=== PATIENT | female | born 1985 | race Caucasian/White ===

== ENCOUNTER 2019-01-18 09:44 | Observation (INO) | payer SELFPAY ==
[2019-01-18] MEDS ORDERED: OXYCODONE-ACETAMINOPHEN 5-325 MG TABLET PO ONE ×2 (09:55→14:18)
[2019-01-18] MEDS ORDERED: ONDANSETRON 4 MG TAB.RAPDIS PO ONE ×2 (09:55→14:11)
[2019-01-18] MEDS ORDERED: PROMETHAZINE HCL 25 MG TABLET PO ONE (09:55)
--- NOTE | 2019-01-18 09:56 | ER Document Report ---
ED Medical Screen (RME) - General Chief Complaint: Skin Problem Stated Complaint: SHORTNESS OF BREATH Time Seen by Provider: 01/18/19 09:53 Notes: Patient's complaining of a "knot" in her right axilla which has been present for about 3 days. Getting worse. Has never had this before. Area has not drained. No fever. No significant past medical history. On no prescription medications. Erythema on the right axilla. Patient appears to be in considerable pain. - Related Data Allergies/Adverse Reactions: No Known Allergies Allergy (Unverified 01/18/19 09:46) Past Medical History - Social History Chew tobacco use (# tins/day): No Frequency of alcohol use: None Drug Abuse: None Renal/ Medical History: Denies: Hx Peritoneal Dialysis Renal/ Medical History: Denies: Hx Peritoneal Dialysis Physical Exam - Vital signs Vitals: Temp Pulse Resp BP Pulse Ox 97.9 F 99 16 125/82 100 01/18/19 09:48 01/18/19 09:48 01/18/19 09:48 01/18/19 09:48 01/18/19 09:48 Course - Vital Signs Vital signs: Temp Pulse Resp BP Pulse Ox 97.9 F 99 16 125/82 100 01/18/19 09:48 01/18/19 09:48 01/18/19 09:48 01/18/19 09:48 01/18/19 09:48
--- NOTE | 2019-01-18 14:06 | ER Document Report ---
ED General - General Chief Complaint: Skin Problem Stated Complaint: SHORTNESS OF BREATH Time Seen by Provider: 01/18/19 09:53 Notes: 33 female presents for abscess in right axilla that started 2 days ago as a pimple. She states the pain is excruciating, it hurts to breathe, she is nauseated, she has a fever, and she "just wants help ". She complains of chills, denies headache, denies dizziness or lightheadedness, denies vomiting or abdominal pain, denies urinary issues. No other complaints. - Related Data Allergies/Adverse Reactions: No Known Allergies Allergy (Unverified 01/18/19 09:46) Past Medical History - Social History Smoking Status: Current Every Day Smoker Chew tobacco use (# tins/day): No Frequency of alcohol use: None Drug Abuse: None Family History: Reviewed & Not Pertinent Patient has suicidal ideation: No Patient has homicidal ideation: No Renal/ Medical History: Denies: Hx Peritoneal Dialysis Review of Systems - Review of Systems Constitutional: See HPI EENT: No symptoms reported Cardiovascular: See HPI Respiratory: See HPI Gastrointestinal: See HPI Genitourinary: No symptoms reported Female Genitourinary: No symptoms reported Musculoskeletal: No symptoms reported Skin: See HPI Hematologic/Lymphatic: No symptoms reported Neurological/Psychological: No symptoms reported Physical Exam - Vital signs Vitals: Temp Pulse Resp BP Pulse Ox 97.9 F 99 16 125/82 100 01/18/19 09:48 01/18/19 09:48 01/18/19 09:48 01/18/19 09:48 01/18/19 09:48 - Notes Notes: PHYSICAL EXAMINATION: Reviewed vital signs and charting by RN GENERAL: Alert, interacts well. In acute distress. HEAD: Normocephalic, atraumatic. EYES: Pupils equal, round. Extraocular movements intact. ENT: Oral mucosa moist. NECK: Full range of motion. Trachea midline. EXTREMITIES: Moves all 4 extremities spontaneously. No edema, No cyanosis. BACK: no cervical, thoracic, lumbar midline tenderness. No saddle anesthesia, normal distal neurovascular exam. NEUROLOGICAL: Alert and oriented x3. Normal speech. PSYCH: Normal affect, normal mood. SKIN: Warm, dry, normal turgor. No rashes or lesions noted. Area of induration right axilla approximately 10 m x 4 cm, could not find any fluctuant area. There is an area of erythema. Course - Re-evaluation Re-evalutation: 01/18/19 14:04 33 female who appears to be in distress. Bedside ultrasound performed and no visible fluid pocket seen. Presentation most consistent with an abscess. I will provide coverage with Keflex 500 mg 4 times per day for 7 days and Bactrim double strength twice a day for 7 days. Patient's vital signs are stable. Took patient's temperature read 101.8. Patient in acute distress. I ordered some basic labs and provided pain control. Will reassess. 01/18/19 15:56 Patient with a leukocytosis of 15.8. Repeat temperature 102.0 orally. Order lactate, IV fluids, blood cultures. 01/18/[address] Knight, surgical list, and explained to him that patient had an area of induration without a drainable pocket. He stated that if that is the case it would be best to call the hospitalist whom I called, Dr. Maldonado, who accepted the patient for full medical floor admission - Vital Signs Vital signs: Temp Pulse Resp BP Pulse Ox 103.1 F H 99 16 125/82 100 01/18/19 15:53 01/18/19 09:48 01/18/19 09:48 01/18/19 09:48 01/18/19 09:48 - Laboratory Result Diagrams: 01/18/19 15:12 01/18/19 15:12 Laboratory results interpreted by me: 01/18/19 01/18/19 15:12 15:12 WBC 15.8 H Seg Neutrophils % 85.0 H Lymphocytes % 7.9 L Absolute Neutrophils 13.4 H AST 50 H Discharge - Discharge Clinical Impression: Abscess Condition: Good Disposition: ADMITTED INPATIENT Admitting Provider: Hospitalist Unit Admitted: Medical Floor Prescriptions: Cephalexin Monohydrate [Keflex 500 mg Capsule] 500 mg PO QID 10 Days #40 capsule Sulfamethoxazole/Trimethoprim [Bactrim Ds Tablet] 1 each PO BID 10 Days #20 tablet
[2019-01-18] MEDS ORDERED: CEPHALEXIN 500 MG CAPSULE PO ONE (14:08)
[2019-01-18] MEDS ORDERED: SULFAMETHOXAZOLE/TRIMETHOPRIM 800-160 MG TABLET PO ONE (14:08)
[2019-01-18] MEDS ORDERED: HYDROCODONE/ACETAMINOPHEN 5-325 MG (6 TAB/ER DISP) PO PRN (14:11)
[2019-01-18 15:22] LABS: ABSOLUTE EOSINOPHILS # (AUTO) 0.4 10^3/uL (0.0-0.6); ABSOLUTE MONOCYTES (AUTO) 0.7 10^3/uL (0.1-1.4); EOSINOPHILS % (AUTO) 2.4 % (0-6); RED CELL DISTRIBUTION WIDTH 13.2 % (11.5-14.0); TOTAL CELLS COUNTED % (AUTO) 100 %; WHITE BLOOD COUNT 15.8 10^3/uL (4.0-10.5)
[2019-01-18 15:27] LABS: ABSOLUTE LYMPHOCYTES (AUTO) 1.2 10^3/uL (0.5-4.7); ABSOLUTE NEUT (AUTO) 13.4 10^3/uL (1.7-8.2); BASOPHILS % (AUTO) 0.3 % (0-2); HEMATOCRIT 37.6 % (36.0-47.0); LYMPHOCYTES % (AUTO) 7.9 % (13-45); MEAN CORPUSCULAR HEMOGLOBIN 31.4 pg (27.0-33.4); MEAN CORPUSCULAR HGB CONC 34.5 g/dL (32.0-36.0); MEAN CORPUSCULAR VOLUME 91 fl (80-97); MONOCYTES % (AUTO) 4.4 % (3-13); PLATELET COUNT 313 10^3/uL (150-450); RED BLOOD COUNT 4.13 10^6/uL (3.72-5.28)
[2019-01-18 15:38] LABS: ALANINE AMINOTRANSFERASE 40 U/L (9-52); ALKALINE PHOSPHATASE 75 U/L (38-126); ANION GAP 12 (5-19); ASPARTATE AMINO TRANSFERASE 50 U/L (14-36); BILIRUBIN,DIRECT 0.2 mg/dL (0.0-0.4); BILIRUBIN,TOTAL 0.5 mg/dL (0.2-1.3); BLOOD UREA NITROGEN 11 mg/dL (7-20); CALCIUM 9.5 mg/dL (8.4-10.2); CARBON DIOXIDE 24 mmol/L (22-30); CHLORIDE 103 mmol/L (98-107); GLUCOSE 103 mg/dL (75-110); POTASSIUM 4.1 mmol/L (3.6-5.0); SODIUM 138.9 mmol/L (137-145); TOTAL PROTEIN 6.5 g/dL (6.3-8.2)
[2019-01-18] MEDS ORDERED: NORMAL SALINE 1000 ML 1,000 ML IV ONE (15:55)
[2019-01-18] MEDS ORDERED: HYDROCODONE/ACETAMINOPHEN 5-325 MG TABLET PO PRN (16:37)
[2019-01-18] MEDS ORDERED: ACETAMINOPHEN 325 MG TABLET PO PRN (16:37)
[2019-01-18] MEDS ORDERED: PIPERACILLIN/TAZOBACTAM 3.375 GM VIAL IV ONE (16:39)
[2019-01-18] MEDS ORDERED: VANCOMYCIN HCL 0 MG in DEXTROSE 5%-WATER 250 ML IV NR (16:45)
--- NOTE | 2019-01-18 16:46 | PDOC H&P ---
History of Present Illness Admission Date/PCP: 01/18/19 16:33 Patient complains of: right axillary rash and tenderness History of Present Illness: ARIANE MATTA is a 33 year old female with no significant PMH aside form chronic smoking who presented with right axillary rash and pain. She says she recently shaved her armpits earlier this week. Two days ago, she noticed a pimple like lesion on the right axillary area which progressed in size and erythema and tenderness. She denies active drainage. She was evaluated by Dr. Knight in the ER and ER provider also did a bedside US and no drainable abscess or pocket was found. She is febrile in the ER with a temp of 103 and also has significant leukocytosis. Social History Smoking Status: Current Every Day Smoker Family History Family History: Reviewed & Not Pertinent Parental Family History Reviewed: Yes - no premature CAD Children Family History Reviewed: No Sibling(s) Family History Reviewed.: No Medication/Allergy Home Medications: Cephalexin Monohydrate [Keflex 500 mg Capsule] 500 mg PO QID 10 Days #40 capsule 01/18/19 Sulfamethoxazole/Trimethoprim [Bactrim Ds Tablet] 1 each PO BID 10 Days #20 tablet 01/18/19 Allergies/Adverse Reactions: No Known Allergies Allergy (Unverified 01/18/19 09:46) Review of Systems All systems: reviewed and no additional remarkable complaints except as stated - as mentioned in HPI Physical Exam Vital Signs: Temp Pulse Resp BP Pulse Ox 103.1 F H 99 16 125/82 100 01/18/19 15:53 01/18/19 09:48 01/18/19 09:48 01/18/19 09:48 01/18/19 09:48 Intake & Output 01/17/19 01/18/19 01/19/19 06:59 06:59 06:59 Weight 140 lb 10.479 oz Results Laboratory Results: 01/18/19 15:12 01/18/19 15:12 01/18/19 01/18/19 15:12 15:12 WBC 15.8 H RBC 4.13 Hgb 13.0 Hct 37.6 MCV 91 MCH 31.4 MCHC 34.5 RDW 13.2 Plt Count 313 Seg Neutrophils % 85.0 H Lymphocytes % 7.9 L Monocytes % 4.4 Eosinophils % 2.4 Basophils % 0.3 Absolute Neutrophils 13.4 H Absolute Lymphocytes 1.2 Absolute Monocytes 0.7 Absolute Eosinophils 0.4 Absolute Basophils 0.0 Sodium 138.9 Potassium 4.1 Chloride 103 Carbon Dioxide 24 Anion Gap 12 BUN 11 Creatinine 0.69 Est GFR ( Amer) > 60 Est GFR (Non-Af Amer) > 60 Glucose 103 Calcium 9.5 Total Bilirubin 0.5 AST 50 H ALT 40 Alkaline Phosphatase 75 Total Protein 6.5 Albumin 4.0 Assessment & Plan - Diagnosis (1) Cellulitis of right axilla Is this a current diagnosis for this admission?: Yes Plan: Will start patient on vancomycin. Surgery also recommend adding a dose of Zosyn. Will parker lesions to reassess progression. - Time Time Spent: 30 to 50 Minutes
[2019-01-18] MEDS ORDERED: NICOTINE 21 MG/24 HR PATCH.TD24 TD PRN (16:49)
[2019-01-18 17:28] LABS: APPEARANCE,URINE SLIGHTLY-CLOUDY; BILIRUBIN,URINE NEGATIVE (NEGATIVE); COLOR,URINE YELLOW; GLUCOSE, URINE NEGATIVE (NEGATIVE); KETONES,URINE NEGATIVE (NEGATIVE); LEUKOCYTE ESTERASE,URINE TRACE (NEGATIVE); NITRITE,URINE NEGATIVE (NEGATIVE); PROTEIN,URINE NEGATIVE (NEGATIVE); URINE SPECIFIC GRAVITY 1.023
[2019-01-18 17:41] LABS: URINE AMPHETAMINES SCREEN NEGATIVE; URINE BARBITURATES SCREEN NEGATIVE; URINE BENZODIAZEPINES SCREEN NEGATIVE; URINE COCAINE SCREEN NEGATIVE; URINE MARIJUANA (THC) SCREEN NEGATIVE; URINE METHADONE SCREEN NEGATIVE; URINE PHENCYCLIDINE SCREEN NEGATIVE
[2019-01-18] MEDS: PIPERACILLIN SODIUM/TAZOBACTAM 3.375 GM in NORMAL SALINE 100 ML IV SCH ×2 (17:57→23:16)
--- NOTE | 2019-01-18 18:16 | PDOC CONSULTATION ---
History of Present Illness Admission Date/PCP: 01/18/19 16:33 Patient complains of: pains right axilla History of Present Illness: ARIANE MATTA is a 33 year old female who shaved her right axilla and 2 days ago noted pains and redness. Seen in ED and attempted to drain but unable to. Ultrasound showed no apparent abscess. Seen patient and noted a 2 cm induration with small amount of greenish drainage. Will do formal I&D in the OR. Started on IV antibiotics. Social History Smoking Status: Current Every Day Smoker Family History Family History: Reviewed & Not Pertinent Parental Family History Reviewed: Yes Children Family History Reviewed: No Sibling(s) Family History Reviewed.: No Medication/Allergy Home Medications: No Home Medications 01/18/19 Allergies/Adverse Reactions: No Known Allergies Allergy (Unverified 01/18/19 09:46) Review of Systems Constitutional: PRESENT: other - no fever/chills Eyes: PRESENT: other - no visual/hearing changes Cardiovascular: PRESENT: other - no chest pains/cough Gastrointestinal: PRESENT: other - no pains Genitourinary: PRESENT: other - no dysuria Musculoskeletal: PRESENT: other - Right axilla with redness and induration about 2 cm very tender Physical Exam Vital Signs: Temp Pulse Resp BP Pulse Ox 101 F H 99 18 117/74 95 01/18/19 18:01 01/18/19 09:48 01/18/19 18:01 01/18/19 18:01 01/18/19 18:01 Intake & Output 01/17/19 01/18/19 01/19/19 06:59 06:59 06:59 Weight 63.8 kg General appearance: PRESENT: mild distress Head exam: PRESENT: atraumatic Eye exam: PRESENT: conjunctiva pink Mouth exam: PRESENT: moist Neck exam: PRESENT: full ROM Respiratory exam: PRESENT: clear to auscultation carlos Cardiovascular exam: PRESENT: tachycardia Pulses: PRESENT: normal radial pulses Vascular exam: PRESENT: normal capillary refill GI/Abdominal exam: PRESENT: soft Rectal exam: PRESENT: deferred Extremities exam: PRESENT: other - erythema at mid right axilla with a 2 cm tender induration Musculoskeletal exam: PRESENT: ambulatory Neurological exam: PRESENT: alert, oriented to person, oriented to place, oriented to time, oriented to situation Psychiatric exam: PRESENT: appropriate affect Skin exam: PRESENT: normal color, warm Results Laboratory Results: 01/18/19 15:12 01/18/19 15:12 01/18/19 01/18/19 01/18/19 15:12 15:12 16:25 WBC 15.8 H RBC 4.13 Hgb 13.0 Hct 37.6 MCV 91 MCH 31.4 MCHC 34.5 RDW 13.2 Plt Count 313 Seg Neutrophils % 85.0 H Lymphocytes % 7.9 L Monocytes % 4.4 Eosinophils % 2.4 Basophils % 0.3 Absolute Neutrophils 13.4 H Absolute Lymphocytes 1.2 Absolute Monocytes 0.7 Absolute Eosinophils 0.4 Absolute Basophils 0.0 Sodium 138.9 Potassium 4.1 Chloride 103 Carbon Dioxide 24 Anion Gap 12 BUN 11 Creatinine 0.69 Est GFR ( Amer) > 60 Est GFR (Non-Af Amer) > 60 Glucose 103 Lactic Acid 2.6 H Calcium 9.5 Total Bilirubin 0.5 AST 50 H ALT 40 Alkaline Phosphatase 75 Total Protein 6.5 Albumin 4.0 Urine Color Urine Appearance Urine pH Ur Specific [place] Urine Protein Urine Glucose (UA) Urine Ketones Urine Blood Urine Nitrite Ur Leukocyte Esterase Urine WBC (Auto) Urine RBC (Auto) 01/18/19 17:05 WBC RBC Hgb Hct MCV MCH MCHC RDW Plt Count Seg Neutrophils % Lymphocytes % Monocytes % Eosinophils % Basophils % Absolute Neutrophils Absolute Lymphocytes Absolute Monocytes Absolute Eosinophils Absolute Basophils Sodium Potassium Chloride Carbon Dioxide Anion Gap BUN Creatinine Est GFR ( Amer) Est GFR (Non-Af Amer) Glucose Lactic Acid Calcium Total Bilirubin AST ALT Alkaline Phosphatase Total Protein Albumin Urine Color YELLOW Urine Appearance SLIGHTLY-CLOUDY Urine pH 7.0 Ur Specific [place] 1.023 Urine Protein NEGATIVE Urine Glucose (UA) NEGATIVE Urine Ketones NEGATIVE Urine Blood NEGATIVE Urine Nitrite NEGATIVE Ur Leukocyte Esterase TRACE H Urine WBC (Auto) 6 Urine RBC (Auto) 3 Assessment & Plan - Diagnosis (1) Abscess Is this a current diagnosis for this admission?: Yes (2) Cellulitis of right axilla Is this a current diagnosis for this admission?: Yes - Time Time Spent: 30 to 50 Minutes - Plan Summary Plan Summary: Start IV antibiotics I&D right axilla
[2019-01-18] MEDS ORDERED: LIDOCAINE 1%/EPINEPHRINE INJ 20 ML VIAL ONE (18:32)
[2019-01-18] MEDS ORDERED: MIDAZOLAM 2 MG/2 ML INJ ONE (20:02)
[2019-01-18] MEDS ORDERED: FENTANYL CITRATE INJ/PF 100 MCG/2 ML AMPUL ONE (20:02)
[2019-01-18] MEDS ORDERED: DEXAMETHASONE SOD PHOSPHATE INJ 4 MG/1 ML VIAL ONE (20:03)
[2019-01-18] MEDS ORDERED: ONDANSETRON HCL INJ/PF 4 MG/2 ML SDV ONE (20:03)
[2019-01-18] MEDS ORDERED: MORPHINE SULFATE 10 MG/ML INJ ONE (20:03)
[2019-01-18] MEDS ORDERED: PROPOFOL INJ 200 MG/20 ML VIAL IV ONE ×2 (20:03→20:46)
[2019-01-18] MEDS ORDERED: BUPIVACAINE HCL 0.5%-EPI 1:200000 INJ/PF 30 ML VIAL ONE (20:11)
[2019-01-18] MEDS ORDERED: DIPHENHYDRAMINE HCL 50 MG/ML VIAL IV PRN (20:26)
[2019-01-18] MEDS ORDERED: MORPHINE SULFATE 10 MG/ML INJ IV PRN ×2 (20:26→21:06)
[2019-01-18] MEDS ORDERED: FENTANYL CITRATE INJ/PF 100 MCG/2 ML AMPUL IV PRN ×3 (20:26)
[2019-01-18] MEDS ORDERED: PROMETHAZINE HCL INJ 25 MG/1 ML VIAL IV PRN ×2 (20:26)
[2019-01-18] MEDS ORDERED: MEPERIDINE HCL/PF INJ 25 MG/1 ML DISP.SYRIN IV PRN (20:26)
[2019-01-18] MEDS ORDERED: KETOROLAC TROMETHAMINE INJ/PF 30 MG/1 ML SDV ONE (20:46)
[2019-01-18] MEDS ORDERED: ACETAMINOPHEN 1,000 MG/100 ML RTUPB IV ONE (20:46)
[2019-01-18] MEDS ORDERED: NORMAL SALINE 1000 ML 1,000 ML IV PRN (21:05)
[2019-01-18] MEDS ORDERED: ONDANSETRON HCL INJ/PF 4 MG/2 ML SDV IV PRN (21:06)
[2019-01-18] MEDS: VANCOMYCIN HCL 750 MG in DEXTROSE 5%-WATER 250 ML IV SCH (21:49)
--- NOTE | 2019-01-18 22:57 | OPERATIVE REPORT E ---
Operative Report NAME: ARIANE MATTA : 1985 AGE: 33Y DATE OF SURGERY: 01/18/2019 ROOM: 415 PREOPERATIVE DIAGNOSIS: Abscess right axilla. POSTOPERATIVE DIAGNOSIS: Abscess right axilla. OPERATION: Incision and drainage abscess right axilla. SURGEON: RADHA KLEIN M.D. ANESTHESIA: Local MAC. INDICATION: This is a 33-year-old female complaining of pain to the right axilla after shaving her right armpit a few days ago. About 2 days ago started having pains and redness and went to ED. She was noted to have marked tenderness in the right axilla. Starting to have a small amount of drainage after attempted I and D. The patient needed to go to the OR for a formal incision and drainage of abscess of the right axilla. DESCRIPTION OF PROCEDURE: After adequate IV sedation, the patient was placed in the supine position with the right arm extended and the right axilla subsequently prepped and draped in the usual sterile fashion. Local anesthesia infiltrated around the area using about 10 mL of 0.5% Marcaine with epinephrine. There was a small amount of drainage from the mid part of the axilla and cultures of this drainage was obtained as specimen for C and S. The pin point draining area was then enlarged with an 11 blade to a distance of about 1.5 cm caudally. The area was subsequently probed and appears to be relatively deep, about 1.5 cm. It was subsequently pulse lavaged with at least 1 liter of saline. The cavity was subsequently packed with 1/4 inch Iodoform gauze. A sterile dressing was placed over the operative site. Needle, instrument, and sponge count were all correct. Estimated blood loss about 10 mL. The patient brought to the recovery room in satisfactory condition. DICTATING PHYSICIAN: RADHA KLEIN M.D. [id number] PHY#: [id number] ID: [id number] JOB#: [id number] ACCT: [id number] cc:RADHA KLEIN M.D. > MTDD
[2019-01-19] MEDS: KETOROLAC TROMETHAMINE INJ/PF 30 MG/1 ML SDV IV SCH ×2 (02:06→08:54)
[2019-01-19] MEDS: PIPERACILLIN SODIUM/TAZOBACTAM 3.375 GM in NORMAL SALINE 100 ML IV SCH (05:00)
[2019-01-19] MEDS: VANCOMYCIN HCL 750 MG in DEXTROSE 5%-WATER 250 ML IV SCH (05:00)
[2019-01-19 05:37] LABS: HEMATOCRIT 35.7 % (36.0-47.0); HEMOGLOBIN 12.2 g/dL (12.0-15.5); MEAN CORPUSCULAR HEMOGLOBIN 31.2 pg (27.0-33.4); MEAN CORPUSCULAR HGB CONC 34.3 g/dL (32.0-36.0); MEAN CORPUSCULAR VOLUME 91 fl (80-97); PLATELET COUNT 287 10^3/uL (150-450); RED BLOOD COUNT 3.92 10^6/uL (3.72-5.28); RED CELL DISTRIBUTION WIDTH 13.2 % (11.5-14.0); WHITE BLOOD COUNT 21.3 10^3/uL (4.0-10.5)
[2019-01-19 06:13] LABS: ABSOLUTE LYMPHOCYTES# (MANUAL) 1.7 10^3/uL (0.5-4.7); ABSOLUTE MONOCYTES # (MANUAL) 1.7 10^3/uL (0.1-1.4); ABSOLUTE NEUTROPHILS# (MANUAL) 17.7 10^3/uL (1.7-8.2); BAND NEUTROPHILS % (MANUAL) 1 % (3-5); BASOPHILS % (MANUAL) 0 % (0-2); EOSINOPHILS % (MANUAL) 1 % (0-6); LYMPHOCYTES % (MANUAL) 8 % (13-45); MONOCYTES % (MANUAL) 8 % (3-13); RBC MORPHOLOGY COMMENT NORMO-CYTIC/CHROMIC; SEGMENTED NEUTROPHILS % (MAN) 82 % (42-78); TOTAL CELLS COUNTED 100
[2019-01-19 06:14] LABS: PLATELET CLUMPS PRESENT; PLATELET COMMENT ADEQUATE
[2019-01-19] MEDS ORDERED: FONDAPARINUX SODIUM INJ 2.5 MG/0.5 ML DISP.SYRIN SUBCUT SCH (08:00)
[2019-01-19 08:23] VITALS: BP 99/63
[2019-01-19] MEDS ORDERED: LANSOPRAZOLE 30 MG TAB.RAP.DR PO SCH (10:00)
--- NOTE | 2019-01-19 15:45 | PDOC PROGRESS REPORT ---
Subjective Progress Note for:: 01/19/19 Subjective:: Patient seen resting on side of the bed. She is awake, alert and oriented. She is complaining of pain in the right axilla down to her ribs. She states it is much improved from prior to surgery however. She denies fever or chills overnight. She denies any chest pain, shortness breath or dyspnea. She denies nausea, vomiting or abdominal pain. She denies any diarrhea or dysuria. She denies any other complaints at the present time. Reason For Visit: RIGHT AXILLARY CELLULITIS Physical Exam Vital Signs: Temp Pulse Resp BP Pulse Ox 97.6 F 70 20 99/63 L 100 01/19/19 08:22 01/19/19 08:22 01/19/19 08:22 01/19/19 08:22 01/19/19 08:22 Intake & Output 01/18/19 01/19/19 01/20/19 06:59 06:59 06:59 Intake Total 3950 Output Total 955 Balance 2995 Weight 70.7 kg General appearance: PRESENT: no acute distress, well-developed, well-nourished Head exam: PRESENT: atraumatic, normocephalic Eye exam: PRESENT: conjunctiva pink, EOMI, PERRLA. ABSENT: scleral icterus Ear exam: PRESENT: normal external ear exam Mouth exam: PRESENT: moist, tongue midline Neck exam: ABSENT: carotid bruit, JVD, lymphadenopathy, thyromegaly Respiratory exam: PRESENT: clear to auscultation carlos. ABSENT: rales, rhonchi, wheezes Cardiovascular exam: PRESENT: RRR. ABSENT: diastolic murmur, rubs, systolic murmur Pulses: PRESENT: normal dorsalis pedis pul Vascular exam: PRESENT: normal capillary refill GI/Abdominal exam: PRESENT: normal bowel sounds, soft. ABSENT: distended, guarding, mass, organolmegaly, rebound, tenderness Rectal exam: PRESENT: deferred Extremities exam: PRESENT: full ROM. ABSENT: calf tenderness, clubbing, pedal edema Musculoskeletal exam: PRESENT: ambulatory, full ROM, tenderness - Right axilla around surgical dressing Neurological exam: PRESENT: alert, awake, oriented to person, oriented to place, oriented to time, oriented to situation, CN II-XII grossly intact. ABSENT: motor sensory deficit Psychiatric exam: PRESENT: anxious Skin exam: PRESENT: dry, intact, warm, other - Right axilla surgical dressing dry and intact. ABSENT: cyanosis, rash Results Laboratory Results: 01/19/19 05:13 01/18/19 15:12 01/18/19 01/18/19 01/18/19 15:12 15:12 16:25 WBC 15.8 H RBC 4.13 Hgb 13.0 Hct 37.6 MCV 91 MCH 31.4 MCHC 34.5 RDW 13.2 Plt Count 313 Seg Neutrophils % 85.0 H Lymphocytes % 7.9 L Monocytes % 4.4 Eosinophils % 2.4 Basophils % 0.3 Absolute Neutrophils 13.4 H Absolute Lymphocytes 1.2 Absolute Monocytes 0.7 Absolute Eosinophils 0.4 Absolute Basophils 0.0 Sodium 138.9 Potassium 4.1 Chloride 103 Carbon Dioxide 24 Anion Gap 12 BUN 11 Creatinine 0.69 Est GFR ( Amer) > 60 Est GFR (Non-Af Amer) > 60 Glucose 103 Lactic Acid 2.6 H Calcium 9.5 Total Bilirubin 0.5 AST 50 H ALT 40 Alkaline Phosphatase 75 Total Protein 6.5 Albumin 4.0 Urine Color Urine Appearance Urine pH Ur Specific [place] Urine Protein Urine Glucose (UA) Urine Ketones Urine Blood Urine Nitrite Ur Leukocyte Esterase Urine WBC (Auto) Urine RBC (Auto) 01/18/19 01/18/19 01/19/19 17:05 22:10 05:13 WBC 21.3 H RBC 3.92 Hgb 12.2 Hct 35.7 L MCV 91 MCH 31.2 MCHC 34.3 RDW 13.2 Plt Count 287 Seg Neutrophils % Not Reportable Lymphocytes % Not Reportable Monocytes % Not Reportable Eosinophils % Not Reportable Basophils % Not Reportable Absolute Neutrophils Not Reportable Absolute Lymphocytes Not Reportable Absolute Monocytes Not Reportable Absolute Eosinophils Not Reportable Absolute Basophils Not Reportable Sodium Potassium Chloride Carbon Dioxide Anion Gap BUN Creatinine Est GFR ( Amer) Est GFR (Non-Af Amer) Glucose Lactic Acid 2.5 H Calcium Total Bilirubin AST ALT Alkaline Phosphatase Total Protein Albumin Urine Color YELLOW Urine Appearance SLIGHTLY-CLOUDY Urine pH 7.0 Ur Specific [place] 1.023 Urine Protein NEGATIVE Urine Glucose (UA) NEGATIVE Urine Ketones NEGATIVE Urine Blood NEGATIVE Urine Nitrite NEGATIVE Ur Leukocyte Esterase TRACE H Urine WBC (Auto) 6 Urine RBC (Auto) 3 Assessment & Plan - Diagnosis (1) Abscess Is this a current diagnosis for this admission?: Yes Plan: She is postop day #1 post I&D right axilla abscess. Culture of wound is growing gram-positive cocci. Surgery has not been via to remove dressing. She is asking when she can go home. We will continue IV antibiotics until cultures resolved. (2) Cellulitis of right axilla Is this a current diagnosis for this admission?: Yes Plan: As above #1 - Time Time Spent with patient: 25-34 minutes Total Critical Time (Minutes): 25 Medications reviewed and adjusted accordingly: Yes Anticipated discharge: Home Within: within 48 hours
--- NOTE | 2019-01-19 15:57 | PDOC DISCHARGE SUMMARY ---
General - Admit/Disc Date/PCP Admission Date/Primary Care Provider: 01/18/19 16:33 Discharge Date: 01/19/19 - Patient eloped AMA - Discharge Diagnosis (1) Abscess Is this a current diagnosis for this admission?: Yes (2) Cellulitis of right axilla Is this a current diagnosis for this admission?: Yes - Additional Information Resuscitation Status: Full Code Home Medications: No Home Medications 01/18/19 History of Present Illness Patient complains of: Right axillary rash and swelling History of Present Illness: ARIANE MATTA is a 33 year old female with no significant PMH aside form chronic smoking who presented with right axillary rash and pain. She says she recently shaved her armpits earlier this week. Two days ago, she noticed a pimple like lesion on the right axillary area which progressed in size and erythema and tenderness. She denies active drainage. She was evaluated by Dr. Knight in the ER and ER provider also did a bedside US and no drainable abscess or pocket was found. She is febrile in the ER with a temp of 103 and also has significant leukocytosis. Hospital Course Hospital Course: Patient was admitted to the medical floor on telemetry. Blood cultures x2 were obtained she was started on IV broad-spectrum antibiotics. Surgery was consulted. Dr. Knight, general surgeon, saw the patient in consult. He took her to the OR on 01/18/2019 drainage of a right axilla abscess. Cultures were obtained. Patient's pain was much improved after the procedure. She was continued on IV antibiotics. This morning she continues to have leukocytosis. She was asking for discharge she had not been seen by surgery yet. Wound culture not finalized yet preliminary cultures showing gram-positive cocci. Shortly after I saw the patient on rounds is notified by nursing staff that she had eloped. Unfortunately her saline lock was still in place. [place] [employer] was notified and they will check her residents to see if she is there. Physical Exam Vital Signs: Temp Pulse Resp BP Pulse Ox 97.6 F 70 20 99/63 L 100 01/19/19 08:22 01/19/19 08:22 01/19/19 08:22 01/19/19 08:22 01/19/19 08:22 Intake & Output 01/18/19 01/19/19 01/20/19 06:59 06:59 06:59 Intake Total 3950 1000 Output Total 955 Balance 2995 1000 Weight 70.7 kg General appearance: PRESENT: no acute distress, thin, well-developed Head exam: PRESENT: atraumatic, normocephalic Eye exam: PRESENT: conjunctiva pink, EOMI, PERRLA. ABSENT: scleral icterus Ear exam: PRESENT: normal external ear exam Mouth exam: PRESENT: moist, tongue midline Neck exam: ABSENT: carotid bruit, JVD, lymphadenopathy, thyromegaly Respiratory exam: PRESENT: clear to auscultation carlos. ABSENT: rales, rhonchi, wheezes Cardiovascular exam: PRESENT: RRR. ABSENT: diastolic murmur, rubs, systolic murmur Pulses: PRESENT: normal dorsalis pedis pul Vascular exam: PRESENT: normal capillary refill GI/Abdominal exam: PRESENT: normal bowel sounds, soft. ABSENT: distended, guarding, mass, organolmegaly, rebound, tenderness Rectal exam: PRESENT: deferred Extremities exam: PRESENT: full ROM. ABSENT: calf tenderness, clubbing, pedal edema Neurological exam: PRESENT: alert, awake, oriented to person, oriented to place, oriented to time, oriented to situation, CN II-XII grossly intact. ABSENT: motor sensory deficit Psychiatric exam: PRESENT: appropriate affect, normal mood. ABSENT: homicidal ideation, suicidal ideation Skin exam: PRESENT: other - Right axillary surgical site dressing and packing in place Results Laboratory Results: 01/19/19 05:13 01/18/19 15:12 01/18/19 01/18/19 01/18/19 15:12 16:25 17:05 WBC RBC Hgb Hct MCV MCH MCHC RDW Plt Count Seg Neutrophils % Lymphocytes % Monocytes % Eosinophils % Basophils % Absolute Neutrophils Absolute Lymphocytes Absolute Monocytes Absolute Eosinophils Absolute Basophils Sodium 138.9 Potassium 4.1 Chloride 103 Carbon Dioxide 24 Anion Gap 12 BUN 11 Creatinine 0.69 Est GFR ( Amer) > 60 Est GFR (Non-Af Amer) > 60 Glucose 103 Lactic Acid 2.6 H Calcium 9.5 Total Bilirubin 0.5 AST 50 H ALT 40 Alkaline Phosphatase 75 Total Protein 6.5 Albumin 4.0 Urine Color YELLOW Urine Appearance SLIGHTLY-CLOUDY Urine pH 7.0 Ur Specific [place] 1.023 Urine Protein NEGATIVE Urine Glucose (UA) NEGATIVE Urine Ketones NEGATIVE Urine Blood NEGATIVE Urine Nitrite NEGATIVE Ur Leukocyte Esterase TRACE H Urine WBC (Auto) 6 Urine RBC (Auto) 3 01/18/19 01/19/19 22:10 05:13 WBC 21.3 H RBC 3.92 Hgb 12.2 Hct 35.7 L MCV 91 MCH 31.2 MCHC 34.3 RDW 13.2 Plt Count 287 Seg Neutrophils % Not Reportable Lymphocytes % Not Reportable Monocytes % Not Reportable Eosinophils % Not Reportable Basophils % Not Reportable Absolute Neutrophils Not Reportable Absolute Lymphocytes Not Reportable Absolute Monocytes Not Reportable Absolute Eosinophils Not Reportable Absolute Basophils Not Reportable Sodium Potassium Chloride Carbon Dioxide Anion Gap BUN Creatinine Est GFR ( Amer) Est GFR (Non-Af Amer) Glucose Lactic Acid 2.5 H Calcium Total Bilirubin AST ALT Alkaline Phosphatase Total Protein Albumin Urine Color Urine Appearance Urine pH Ur Specific [place] Urine Protein Urine Glucose (UA) Urine Ketones Urine Blood Urine Nitrite Ur Leukocyte Esterase Urine WBC (Auto) Urine RBC (Auto) Qualifiers - * PATIENT BEING DISCHARGED WITH ANY OF THE FOLLOWING DIAGNOSIS: No
== END 2019-01-19 12:00 | disposition left against medical advice (07) ==
LOC: EDSEX → ER 09:44 → EH 16:33 → INTOOBSV 16:33 → 4N 21:45
PROVIDERS: ADMIT Internal Medicine; ATTEND Internal Medicine
PROC: 0H9BXZZ Drainage of Right Upper Arm Skin, External Approach (ICD-10-PCS; principal; 2019-01-18 19:00)
DX: L02.411 Cutaneous abscess of right axilla (principal); L03.111 Cellulitis of right axilla; B96.89 Other specified bacterial agents as the cause of diseases classified elsewhere; D72.829 Elevated white blood cell count, unspecified; R50.9 Fever, unspecified; R11.0 Nausea; R07.1 Chest pain on breathing; F17.200 Nicotine dependence, unspecified, uncomplicated; Z53.21 Procedure and treatment not carried out due to patient leaving prior to being seen by health care provider
CPT/HCPCS: 99284; 36415 ×2; 87040; 87070; 87205; 85025 ×2; 81025; 87075; 87077; 80053; 81001; 87186; 80307; 83605; 10060; G0378 ×3; A6266; J2250; J3490 ×2; J1100; S0119; J3010; J1885 ×2; J2270; J1652; J2405 ×2; J7060 ×2; J7030; J2704; J3370 ×2; J2543 ×2; J0131; 400